=== PATIENT | female | born 1965 | race Caucasian/White ===

== ENCOUNTER 2019-06-24 14:18 | Emergency (ER) | payer MEDICAID ==
[~2019-06-24] VITALS: Ht 177.8 cm; Wt 130.2 kg
[~2019-06-24 14:18] MED LIST: KEFLEX500 MG ORAL; NKM
[2019-06-24 14:21] VITALS: BP 153/83
[2019-06-24] MEDS ORDERED: Cyclobenzaprine 10mg Tab ORAL ONE (14:30)
[2019-06-24] MEDS ORDERED: Ketorolac 60mg Inj IM ONE (14:30)
--- NOTE | 2019-06-24 14:30 | NUR ---
ED Nurse Note: Pt came in due to lower back pain x 3 days. Denies injury. No difficulty when she urinates. AAO x4 and ambulatory.
[2019-06-24] MEDS ORDERED: IBUPROFEN600 MG ORAL (15:22)
[2019-06-24] MEDS ORDERED: CYCLOBENZAPRINE10 MG ORAL (15:22)
[2019-06-24 15:28] VITALS: BP 145/70
--- NOTE | 2019-06-24 15:28 | NUR ---
ER DISCHARGE NOTE: Patient is cleared to be discharged per PA, pt is aox4, on room air, with stable vital signs. pt was given dc and prescription instructions, pt was able to verbalize understanding, pt id band removed. pt is able to ambulate with steady gait. pt took all belongings.
--- NOTE | 2019-06-24 16:41 | Emergency Room Report ---
History of Present Illness General Chief Complaint: Back Pain-No Injury Source: Patient Present Illness HPI Patient is a 54-year-old female presenting for lower back pain. She states that she was lifting up her mattress 3 days prior and felt a pain to the lower back. Pain described as a 9 out of 10 dull ache and does not radiate from the back. Worse with bending over and walking. She has tried Tylenol which has not helped. She denies other symptoms including numbness, tingling, fever, chills, abdominal pain, incontinence Allergies: Coded Allergies: CODEINE (Verified Allergy, Mild, Hives, 04/04/13) Patient History Past Medical History: see triage record Pertinent Family History: none Last Menstrual Period: hysterectomy 6 yrs ago Reviewed Nursing Documentation: PMH: Agreed; PSxH: Agreed Nursing Documentation-PMH Past Medical History: No Stated History Review of Systems All Other Systems: negative except mentioned in HPI Physical Exam Vital Signs Date Time Temp Pulse Resp B/P (MAP) Pulse Ox O2 Delivery O2 Flow Rate FiO2 06/24/19 14:21 98.2 74 18 153/83 (106) 96 Room Air Sp02 EP Interpretation: reviewed, normal General Appearance: no apparent distress, alert, GCS 15, non-toxic Head: normocephalic, atraumatic Eyes: bilateral eye normal inspection, bilateral eye PERRL Cardiovascular #1: regular rate, rhythm, no edema Gastrointestinal: normal bowel sounds, non tender, soft, non-distended, no guarding Genitourinary: no CVA tenderness Musculoskeletal: normal inspection, tender - TTP over bilat paraspinal muscles Neurologic: alert, oriented x3, responsive, motor strength/tone normal, sensory intact, speech normal Psychiatric: judgement/insight normal, memory normal, mood/affect normal, no suicidal/homicidal ideation Medical Decision Making PA Attestation Dr. Manriquez is my supervising physician. Patient management was discussed with my supervising physician Diagnostic Impression: Primary Impression: Lumbar strain Qualified Codes: S39.012A - Strain of muscle, fascia and tendon of lower back , initial encounter ER Course Patient is a 54-year-old female presenting for lower back pain. Ddx considered include but not limited to lumbar strain, degenerative disease, disc herniation, fracture PE: Vitals stable. NAD TTP over the Lumbar paraspinal muscles only. No midline tenderness or step-offs Normal gait Pt given IM Toradol and flexeril and feels significantly better. She will be DC'ed home with motrin and flexeril. Heating pad advised. F/U with PCP for further eval and treatment Last Vital Signs Date Time Temp Pulse Resp B/P (MAP) Pulse Ox O2 Delivery O2 Flow Rate FiO2 06/24/19 15:28 98.6 80 15 145/70 100 Room Air Status: improved Disposition: HOME, SELF-CARE Condition: Improved Scripts Cyclobenzaprine Hcl* (FLEXERIL*) 10 Mg Tablet 10 MG ORAL THREE TIMES A DAY, #15 TAB Prov: KUN HODGES 06/24/19 Ibuprofen* (MOTRIN*) 600 Mg Tablet 600 MG ORAL Q8H PRN for For Pain, #30 TAB 0 Refills Prov: KUN HODGES 06/24/19 Referrals: NON PHYSICIAN (PCP) Patient Instructions: Back Pain, Adult Additional Instructions: I discussed my findings with the patient. All questions and concerns have been answered. Treatment and medication compliance have been addressed. I advised the patient that they need to follow up with Primary doctor in 3-5 days. Return to ED if pain remains or worsens, numbness or tingling occurs, new rash is noticed, fever is noticed, or if needed for any reason. Patient verbalized understanding of discharge instructions. KUN HODGES Jun 24, 2019 16:40
== END 2019-06-24 15:28 | disposition home or self-care (01) ==
LOC: EMR 14:30
DX: S39.012A Strain of muscle, fascia and tendon of lower back, initial encounter (principal); Z88.6 Allergy status to analgesic agent; X50.9XXA Other and unspecified overexertion or strenuous movements or postures, initial encounter; Y92.003 Bedroom of unspecified non-institutional (private) residence as the place of occurrence of the external cause
CPT/HCPCS: 96372; Z7502; 99283

== ENCOUNTER 2020-09-18 02:22 | Emergency (ER) | payer MEDICAID ==
[~2020-09-18] VITALS: Ht 177.8 cm; Wt 117.9 kg
[~2020-09-18 02:22] MED LIST changes: +CYCLOBENZAPRINE10 MG ORAL; +IBUPROFEN600 MG ORAL; +VOLTAREN100 G1 TP
--- NOTE | 2020-09-18 02:57 | Emergency Room Report ---
History of Present Illness General Chief Complaint: Dizziness Source: Patient Present Illness HPI Patient started having palpitations approximately 530 this evening. She denies any chest pain shortness of breath. Feels like when she has some that they take the wind away from her but otherwise she is not short of breath. Her brother has history of DVTs recently diagnosed 2 or 3 months ago. She denies swelling in her calfs or pain. The patient denies fevers or chills. There is no productive cough. The patient denies he symptoms happening in the past. She has some underlying stress but not overwhelming. She denies ingestion of alcohol. She does not take any prescribed medications however she does take some herbs. He feels some dizziness occasionally when this happens but has not lost consciousness or had change in her vision. Patient denies exposure to Covid positive contacts. No sore throat, chest pain, nausea, vomiting, diarrhea, dysuria, abdominal pain, joint pain, rashes, depression, headache. Allergies: Coded Allergies: CODEINE (Verified Allergy, Mild, Hives, 04/04/13) COVID-19 Screening Contact w/high risk pt: No Experienced COVID-19 symptoms?: No COVID-19 Testing performed [employer] SET UP TECHNICIAN: No Patient History Past Surgical History: hysterectomy Social History: Denies: smoking Social History Narrative From home Now: No Reviewed Nursing Documentation: PMH: Agreed; PSxH: Agreed Nursing Documentation-PMH Past Medical History: No History, Except For Review of Systems All Other Systems: negative except mentioned in HPI Physical Exam Vital Signs Date Time Temp Pulse Resp B/P (MAP) Pulse Ox O2 Delivery O2 Flow Rate FiO2 09/18/20 02:34 97.7 86 18 141/80 (100) 94 Room Air Sp02 EP Interpretation: reviewed, normal General Appearance: well appearing, no apparent distress, GCS 15 Head: normocephalic Eyes: bilateral eye normal inspection, bilateral eye PERRL, bilateral eye EOMI ENT: moist mucus membranes Neck: supple Respiratory: lungs clear, normal breath sounds Cardiovascular #1: regular rate, rhythm - With some occasional irregular beats, no edema, systolic murmur - 1/6 heard loudest aortic area not radiating to the axilla Cardiovascular #2: 2+ radial (R) Gastrointestinal: normal inspection, normal bowel sounds, non tender, no mass, non-distended Musculoskeletal: back normal, normal range of motion, no calf tenderness, gait/station normal Neurologic: alert, oriented x3, grossly normal Psychiatric: mood/affect normal Skin: no rash, warm/dry Medical Decision Making Diagnostic Impression: Primary Impression: PAC (premature atrial contraction) Additional Impression: Palpitations ER Course Patient presents with palpitations and dizziness. Differential includes arrhythmia, dehydration, pulmonary embolus, anxiety, coronary syndrome, electrolyte abnormality amongst others. Evaluation with EKG, chest x-ray and labs. Patient placed on trade mark attorney. Cardiac risk factors are low. Patient does have a family history for pulmonary embolus however due to vital signs and history being stable this diagnosis is less likely. EKG sinus rhythm. Second EKG obtained by me with frequent PACs. Chest x-ray normal. CBC and CMP normal. Troponin negative. Ectopy is decreased. However propranolol 10 mg is administered orally. Discussed findings with patient. Discussed the need for outpatient reevaluation and consultation with commodity industry analyst with echocardiogram suggested. No apparent medical emergency at this time. Patient improved and stable for outpatient observation and treatment. Late add on: TSH high. Message left with patient for further testing. 09/19 Laboratory Tests Test 09/18/20 03:03 White Blood Count 6.2 K/UL (4.8-10.8) Red Blood Count 4.03 M/UL (4.20-5.40) L Hemoglobin 12.5 G/DL (12.0-16.0) Hematocrit 39.3 % (37.0-47.0) Mean Corpuscular Volume 97 FL (80-99) Mean Corpuscular Hemoglobin 31.1 PG (27.0-31.0) H Mean Corpuscular Hemoglobin Concent 32.0 G/DL (32.0-36.0) Red Cell Distribution Width 14.1 % (11.6-14.8) Platelet Count 228 K/UL (150-450) Mean Platelet Volume 7.9 FL (6.5-10.1) Neutrophils (%) (Auto) 61.6 % (45.0-75.0) Lymphocytes (%) (Auto) 27.3 % (20.0-45.0) Monocytes (%) (Auto) 7.0 % (1.0-10.0) Eosinophils (%) (Auto) 2.6 % (0.0-3.0) Basophils (%) (Auto) 1.5 % (0.0-2.0) Prothrombin Time 11.0 SEC (9.30-11.50) Prothrombin Time INR 1.0 (0.9-1.1) Activated Partial Thromboplast Time 27 SEC (23-33) Sodium Level 139 MMOL/L (136-145) Potassium Level 3.7 MMOL/L (3.5-5.1) Chloride Level 103 MMOL/L (98-107) Carbon Dioxide Level 28 MMOL/L (21-32) Anion Gap 8 mmol/L (5-15) Blood Urea Nitrogen 11 mg/dL (7-18) Creatinine 1.2 MG/DL (0.55-1.30) Estimated Glomerular Filtration Rate 56.1 mL/min (>60) Glucose Level 134 MG/DL (74-106) H Calcium Level 8.6 MG/DL (8.5-10.1) Total Bilirubin 0.3 MG/DL (0.2-1.0) Aspartate Amino Transferase (AST) 12 U/L (15-37) L Alanine Aminotransferase (ALT) 15 U/L (12-78) Alkaline Phosphatase 66 U/L (46-116) Total Creatine Kinase 279 U/L (26-308) Troponin I 0.009 ng/mL (0.000-0.056) Pro-B-Type Natriuretic Peptide 291 pg/mL (0-125) H Total Protein 7.2 G/DL (6.4-8.2) Albumin 3.5 G/DL (3.4-5.0) Globulin 3.7 g/dL Albumin/Globulin Ratio 0.9 (1.0-2.7) L EKG Diagnostic Results Rate: normal Rhythm: NSR ST Segments: no acute changes Rhythm Strip Diag. Results EP Interpretation: yes Rhythm: NSR, other - PACs rate 106 NSR without pac's Chest X-Ray Diagnostic Results Chest X-Ray Diagnostic Results : Chest X-Ray Ordered: Yes # of Views/Limited/Complete: 1 View Indication: Other EP Interpretation: Yes Interpretation: no consolidation, no effusion, no pneumothorax Impression: No acute disease Electronically Signed by: Electronically signed by Prem Iverson MD Last Vital Signs Date Time Temp Pulse Resp B/P (MAP) Pulse Ox O2 Delivery O2 Flow Rate FiO2 09/18/20 02:34 97.7 86 18 141/80 (100) 94 Room Air Status: improved Disposition: HOME, SELF-CARE Condition: Improved Scripts Propranolol Hcl* (INDERAL*) 10 Mg Tablet 10 MG ORAL BID PRN for palpitations, #20 TAB 1 Refill Prov: Prem Iverson MD 09/18/20 Referrals: [facility],REFERRING (PCP) Prem Iverson MD Sep 18, 2020 02:57
[2020-09-18 03:00] VITALS: BP 134/80
--- NOTE | 2020-09-18 03:00 | NUR ---
ED Nurse Note: Patient walked into ED for c/o palpitaitons onset around 1700 yesterday. Patient states she was carrying a pack of water bottles when she had the sudden onset of palpitations. She also notes shortness of breath associated with the palpitations. She is aaox4, breathing is normal and unlabored at this time. Denies chest pain, fever, chills, cough, N/V. Patient connected to telemetry monitor and placed into gown. Safety measures in place.
[2020-09-18 03:32] LABS: ANION GAP 8 mmol/L (5-15); BLOOD UREA NITROGEN 11 mg/dL (7-18); CALCIUM 8.6 MG/DL (8.5-10.1); CARBON DIOXIDE 28 MMOL/L (21-32); CHLORIDE 103 MMOL/L (98-107); CREATININE 1.2 MG/DL (0.55-1.30); POTASSIUM 3.7 MMOL/L (3.5-5.1); SODIUM 139 MMOL/L (136-145)
[2020-09-18 03:33] LABS: BASOPHILS % (AUTO) 1.5 % (0.0-2.0); EOSINOPHILS % (AUTO) 2.6 % (0.0-3.0); HEMATOCRIT 39.3 % (37.0-47.0); HEMOGLOBIN 12.5 G/DL (12.0-16.0); LYMPHOCYTES % (AUTO) 27.3 % (20.0-45.0); MEAN CORPUSCULAR VOLUME 97 FL (80-99); NEUTROPHILS % (AUTO) 61.6 % (45.0-75.0); PLATELET COUNT 228 K/UL (150-450); RED BLOOD COUNT 4.03 M/UL (4.20-5.40); RED CELL DISTRIBUTION WIDTH 14.1 % (11.6-14.8); WHITE BLOOD COUNT 6.2 K/UL (4.8-10.8)
[2020-09-18 03:42] LABS: ALANINE AMINOTRANSFERASE 15 U/L (12-78); ALBUMIN 3.5 G/DL (3.4-5.0); ALBUMIN/GLOBULIN RATIO 0.9 (1.0-2.7); ALKALINE PHOSPHATASE 66 U/L (46-116); ASPARTATE AMINO TRANSFERASE 12 U/L (15-37); BILIRUBIN,TOTAL 0.3 MG/DL (0.2-1.0); CREATINE KINASE 279 U/L (26-308)
[2020-09-18] MEDS ORDERED: Propranolol 10mg tab ORAL ONE (05:00)
[2020-09-18] MEDS ORDERED: PROPRANOLOL HCL10 MG ORAL (05:19)
[2020-09-18 05:35] VITALS: BP 140/88
--- NOTE | 2020-09-18 05:35 | NUR ---
ER DISCHARGE NOTE: Patient is cleared to be discharged per ERMD, pt is aox4, on room air, with stable vital signs. pt was given dc and prescription instructions, pt was able to verbalize understanding, pt id band and iv site removed without complications. pt is able to ambulate with steady gait. pt took all belongings.
--- NOTE | 2020-09-18 21:15 | Diagnostic Imaging Report ---
Indication: Chest pain Technique: One view of the chest Comparison: none Findings: The heart is enlarged. The lungs and pleural spaces are clear. Impression: Cardiomegaly. No acute process
== END 2020-09-18 05:35 | disposition home or self-care (01) ==
LOC: EMR 02:49
DX: I49.1 Atrial premature depolarization (principal); R00.2 Palpitations; Z88.5 Allergy status to narcotic agent; Z90.710 Acquired absence of both cervix and uterus
CPT/HCPCS: 36415; 71045; 80053; 82550; 83880; 84484; 85025; 85610; 85730; 93005; Z7502; 84443; 99284